=== PATIENT | male | born 1995 | race African-American/Black ===

== ENCOUNTER 2018-05-11 22:19 | Emergency (ER) | payer OTHER ==
[~2018-05-11] VITALS: Ht 175.3 cm; Wt 75.7 kg
[2018-05-11] MEDS ORDERED: Oxymetazoline 0.05% Na Spray 30ml NASAL ONE (23:15)
[2018-05-12 05:29] VITALS: BP 111/67
--- NOTE | 2018-05-12 05:50 | Emergency Room Report ---
History of Present Illness General Chief Complaint: Skin Rash/Abscess Source: Patient Present Illness HPI Patient is a 23-year-old male who presented after increased nasal swelling and slight bleeding. Patient reports having prior history of nasal polyp. He reports having increased mild headache. He had not been vomiting. He states he had previous the improvement with the use of Afrin. Patient is currently having surgery for polypectomy. Allergies: Coded Allergies: AMOXICILLIN (Verified Allergy, Unknown, 05/11/18) PENICILLINS (Verified Allergy, Unknown, 05/11/18) Patient History Reviewed Nursing Documentation: PMH: Agreed; PSxH: Agreed Nursing Documentation-PMH Past Medical History: No Stated History Review of Systems All Other Systems: negative except mentioned in HPI Physical Exam Vital Signs Date Time Temp Pulse Resp B/P (MAP) Pulse Ox O2 Delivery O2 Flow Rate FiO2 05/11/18 22:28 97.9 79 16 111/67 96 Room Air General Appearance: well appearing, no apparent distress, alert, GCS 15 Head: normocephalic, atraumatic ENT: hearing grossly normal, normal voice, other - right nare with nasal polyp , minimal bleeding Neck: full range of motion, supple Respiratory: no respiratory distress, speaking full sentences Cardiovascular #1: normal inspection Gastrointestinal: normal inspection Musculoskeletal: no calf tenderness Neurologic: normal gait Psychiatric: mood/affect normal Skin: no rash Medical Decision Making Diagnostic Impression: Primary Impression: Nasal polyp ER Course Patient presented for right-sided nasal bleeding. Differential diagnosis included was not limited to polyp, obstruction the patient was given Afrin nasal spray. Patient was noted to have benign exam. The patient was advised to follow-up with ENT. Patient is advised not to use Afrin for more than 2 days Last Vital Signs Date Time Temp Pulse Resp B/P (MAP) Pulse Ox O2 Delivery O2 Flow Rate FiO2 05/12/18 05:29 97.8 79 16 111/67 96 Room Air Status: improved Disposition: HOME, SELF-CARE Condition: Stable Referrals: [facility],REFERRING (PCP) Patient Instructions: Allergic Rhinitis Additional Instructions: Follow up with ENT for polyp surgery. Braden Glover MD May 12, 2018 05:50
== END 2018-05-11 23:59 | disposition home or self-care (01) ==
LOC: EMR 23:29
DX: J33.9 Nasal polyp, unspecified (principal); Z88.0 Allergy status to penicillin; Z88.1 Allergy status to other antibiotic agents; R51 Headache
CPT/HCPCS: 99283